=== PATIENT | female | born 1935 | race Caucasian/White ===

== ENCOUNTER → 2019-09-13 15:10 | Outpatient (ROUT) | payer MEDICARE, SELFPAY ==
[2019-09-13 15:35] LABS: Appearance Urine UA CLOUDY; Bilirubin Urine UA NEGATIVE (NEGATIVE); Color Urine UA YELLOW; Glucose Urine UA NEGATIVE (Negative); Ketones Urine UA NEGATIVE (NEGATIVE); Leukocyte Esterase Urine UA 3+ (NEGATIVE); Nitrite Urine UA POSITIVE (Negative); Occult Blood Urine UA 2+ (Negative); Protein Urine UA TRACE (Negative); Urobilinogen Urine UA 0.2 E.U./dL (0.2)
[2019-09-13 15:37] LABS: pH Urine UA 7.5 (4.5-8.0)
[2019-09-13 15:45] LABS: Amorphous Sediment Urine 1+; Bacteria Urine Many (>30); RBC Urine 1-5/HPF (0-5/HPF); Squamous Epithelial Cell Urine 0-1 /HPF (0-5/HPF); WBC Urine >100/HPF (0-5/HPF)
[2019-09-13 15:46] LABS: Mucus Urine 1+ (Negative)
== END ==
PROVIDERS: PCP Physician Assistant; Visit Provider Student in an Organized Health Care Education/Training Program
DX: R35.0 Frequency of micturition (principal); N39.0 Urinary tract infection, site not specified
CPT/HCPCS: 81001; 87077; 87086; 87186

== ENCOUNTER → 2020-03-12 14:51 | Outpatient (CLI) | payer MEDICARE, SELFPAY ==
[2020-03-12 11:05] VITALS: BMI 32.0
--- NOTE | 2020-03-12 12:05 | DIET.PN ---
Dietary Progress Note Assessment: 85y F c DM2 (A1c 6.6) requesting RD help to maintain good BG control and manage weight s/p stroke in 2018 resulting in L sided weakness (pt is L dominant) as pt has reduced mobility uses wheelchair, walker, and cane and is on nectar thickened liquids and mechanical soft diet. Pt had 7 children and had weight gain with each of them. Pt feels her best at 160# so wants to lose 15# to improve mobility and her overall health. Pt desires consult c RD as she cannot perform much physical activity outside of physical therapy and hand exercises secondary to hx of stroke. Pt POs have been almost the same for the past 20y c regular intake of Shakley shakes and vitamins. Shake is 2 scoops PRO powder, 1 banana, 6 strawberries, unsweet almond milk and ice. Pt splits this into 3 servings each providing 90 kcals, 15g CHO and 6g PRO. Usual Day: wakes 6:30 7am breakfast: vitamins c shake and kiwi 11am lunch: 2 peeled and sliced apples c 1oz pepperjack cheese and 32 nut thin crackers, tea or deli meat c cheese and pickles 5pm dinner: salad c veggies and buttermilk ranch dressing, sometimes turkey or ham bedtime snack 1/2 c ice cream in sugar cone Pts diet is overrepresented with carbohydrates in lunchtime meal and likely high in sodium r/t deli meat, pickle, and salad dressing choices. HT: 5'2 WT: 175# BMI: 31.6 Labs: TG 160 H, A1c 6.6 H (2017) Nutrition Diagnosis: obesity r/t food and nutrition related knowledge deficit, overconsumption of carbohydrates aeb pt A1c 6.6, BMI 31.6, pts food recall shows lunch containing >50g CHO which hasn't changed in 20y. Interventions: 1. To promote weight loss, pt will aim for 1400 kcal/d with largest at lunchtime meal, splitting the rest between breakfast and dinner. 2. To promote good BG control and support weight loss, pt will consume 30-40g CHO at meals. Pt will choose apples or crackers for lunch, not both and if feeling hungry will eat 1/2c vegetables. EER: 30-40g CHO per meal and 1400kcal (-100/d to support gentle weight loss)
== END ==
PROVIDERS: PCP Student in an Organized Health Care Education/Training Program; Referring Provider Student in an Organized Health Care Education/Training Program; Visit Provider Physician Assistant
DX: E11.9 Type 2 diabetes mellitus without complications (principal); Z71.3 Dietary counseling and surveillance; I69.352 Hemiplegia and hemiparesis following cerebral infarction affecting left dominant side; E66.9 Obesity, unspecified; Z68.31 Body mass index [BMI] 31.0-31.9, adult
CPT/HCPCS: 97802

== ENCOUNTER → 2020-05-15 09:50 | Outpatient (CLI) | payer MEDICARE, MEDICAID, SELFPAY ==
--- NOTE | 2020-05-15 09:53 | DI.MRI.S_ITS ---
PROCEDURE: MR HEAD/BRAIN WO/W CON INDICATIONS: Weakness TECHNIQUE: Noncontrast axial T1 spin echo, axial T2 fast spin echo, sagittal and axial FLAIR, coronal T2 fast spin echo, axial gradient echo, axial diffusion and ADC through the brain. After the administration of contrast, axial and coronal T1 spin echo with fat saturation through the brain. COMPARISON: [facility], MR, MR STROKE PROTOCOL, 09/17/2018, 13:32. FINDINGS: Image quality: Partially degraded by motion artifact. CSF spaces: Basal cisterns are patent. No extra-axial fluid collections. Ventricles are normal in size and shape. Brain: No midline shift. No intracranial bleeds or masses. No abnormal intracranial enhancement. There is cerebral volume loss for age. Small chronic left cerebellar infarct is present, as before. Small chronic right posterior thompson radiata infarct is present, as before. There is periventricular white matter chronic small vessel ischemic change. The brainstem appears normal. Diffusion-weighted images demonstrate no acute ischemic insults. No chronic ischemic insults. Normal intravascular flow voids are present. Skull and face: Calvarial marrow is normal in signal. Orbits appear normal. Sinuses: Sinuses and mastoids appear clear. IMPRESSION: 1. Volume loss and small vessel ischemic disease. 2. Small chronic cerebral and cerebellar infarcts. 3. No acute process. No recent infarct. Dictated by: Stevo Tripp M.D. on 05/15/2020 at 11:24 Approved by: Stevo Tripp M.D. on 05/15/2020 at 11:26
== END ==
PROVIDERS: PCP Student in an Organized Health Care Education/Training Program; Referring Provider Student in an Organized Health Care Education/Training Program; Visit Provider Student in an Organized Health Care Education/Training Program
DX: I63.9 Cerebral infarction, unspecified (principal); R53.1 Weakness; R51.9 Headache, unspecified
CPT/HCPCS: 70553

== ENCOUNTER → 2020-06-20 19:24 | Outpatient (ROUT) | payer OTHER, SELFPAY | PROVIDERS: PCP Student in an Organized Health Care Education/Training Program; Visit Provider Student in an Organized Health Care Education/Training Program | DX: R39.9 Unspecified symptoms and signs involving the genitourinary system (principal) | CPT/HCPCS: 87077; 87086; 87186 ==

== ENCOUNTER → 2020-07-01 18:26 | Outpatient (ROUT) | payer OTHER, SELFPAY | PROVIDERS: PCP Student in an Organized Health Care Education/Training Program; Visit Provider Internal Medicine | DX: N39.0 Urinary tract infection, site not specified (principal) | CPT/HCPCS: 87077; 87086; 87186 ==

== ENCOUNTER → 2021-05-04 07:59 | Outpatient (CLI) | payer OTHER, SELFPAY ==
--- NOTE | 2021-05-04 09:28 | DI.ECHO.S_ITS ---
Echocardiogram Report + + :Name: ZOHREH BACA Study Date: 05/04/2021 Height: 62 in : :[facility] ReadingLocation: Weight: 178 lb : : Gender: Female BSA: 1.8 m2 : :: 1935 Age: 86 yrs BP: 135/77 mmHg: :Reason For Study: Heart failure : :Ordering Physician: Asuncion : :Nirav Performed By: Blake Dubon : :Referring: Asuncion Gastelum : + + Interpretation Summary Technically difficult study. Mild concentric left ventricular hypertrophy with ejection fraction 60-65%. Mildly dilated right atrium. There is no hemodynamically significant valvular aortic stenosis. Moderate to severe mitral annular calcification. Mild mitral regurgitation. Moderate tricuspid regurgitation. The right ventricular systolic pressure is estimated to be at least 35 mmHg based on an estimated right atrial pressure of 3 mm Hg. Mildly enlarged ascending aorta. Procedure: A two-dimensional transthoracic echocardiogram with color flow and Doppler was performed. The study quality was technically difficult. The apical views were difficult to obtain and are suboptimal in quality. The subcostal views were difficult to obtain and are suboptimal in quality. The patient was in normal sinus rhythm during the exam. Left Ventricle: The left ventricle is normal in size. There is mild concentric left ventricular hypertrophy. The ejection fraction is estimated to be 60-65%. There are no focal wall motion abnormalities. Diastolic function could not be accurately assessed due to confounding valvular disease. Right Ventricle: The right ventricle is normal in size and function. Atria: Borderline left atrial enlargement. The right atrium is mildly dilated. Mitral Valve: There is moderate to severe mitral annular calcification. There is mild mitral regurgitation. Aortic Valve: The aortic valve is trileaflet. The aortic valve is moderately calcified. There is mildly reduced leaflet mobility. There is no hemodynamically significant valvular aortic stenosis. There is trace aortic regurgitation. Tricuspid Valve: The tricuspid valve is normal. There is moderate tricuspid regurgitation. The right ventricular systolic pressure is estimated to be at least 35 mmHg based on an estimated right atrial pressure of 3 mm Hg. Pulmonic Valve: The pulmonic valve leaflets are thin and pliable; valve motion is normal. There is a trace or physiologic amount of pulmonic regurgitation. Great Vessels: The aortic root is normal size. The ascending aorta is mildly enlarged. The aortic arch is normal in size. The IVC is of normal diameter and collapses greater than 50% with a sniff. This suggests a low right atrial pressure of 3 mm Hg. Pericardium/ Pleura There is no pericardial effusion. There is an anterior echo-free space consistent with a fat pad. There is no pleural effusion. MMode/2D Measurements & Calculations LVIDd: 4.0 cm LVOT diam: 1.8 cm LVIDs: 2.5 cm Ao root diam: 2.8 cm FS: 36.7 % asc Aorta Diam: 3.8 cm IVSd: 1.1 cm Ao Arch Diam (Prox Trans): 2.9 cm LVPWd: 1.5 cm LV arnold. diameter/BSA (cm/m^2): 2.2 LV sys. diameter/BSA (cm/m^2): 1.4 LA A2 area: 17.0 cm2 RA long axis: 5.6 cm LA A4 area: 26.4 cm2 RA area: 16.6 cm2 LA length (vol): 6.7 cm RA vol: 41.6 ml LA vol: 56.8 ml RA : 22.9 ml/m2 LA vol index: 31.3 ml/m2 TAPSE_phl: 2.0 cm Doppler Measurements & Calculations Ao V2 max: 171.6 cm/sec LVOT Max Sanjay: 81.0 cm/sec Ao V2 mean: 130.9 cm/sec LV V1 max P.6 mmHg Ao max P.8 mmHg LV V1 VTI: 19.0 cm Ao mean P.2 mmHg ROGER(I,D): 1.2 cm2 Ao V2 VTI: 41.9 cm ROGER(V,D): 1.2 cm2 sev ratio: 0.45 ROGER indexed to BSA (cm^2/m^2): 0.64 MV E max sanjay: 107.0 cm/sec TR max sanjay: 282.3 cm/sec MV A max sanjay: 108.0 cm/sec TR max P.9 mmHg MV E/A: 0.99 PA V2 max: 79.6 cm/sec Med Peak E' Sanjay: 3.9 cm/sec PA V2 mean: 54.3 cm/sec E/E' med: 27.6 PA mean P.0 mmHg Lat Peak E' Sanjay: 5.2 cm/sec PA pr(Accel): 40.8 mmHg E/E' lat: 20.5 E/e' average: 24.1 MV dec time: 0.18 sec MVA(VTI): 1.1 cm2 MV V2 mean: 76.1 cm/sec SV(LVOT): 48.3 ml MV mean P.0 mmHg MV V2 VTI: 42.7 cm MV P1/2t-pr_phl: 53.0 msec Electronically signed by: Valentino Strickland on Reading Physician:05/04/2021 12:25 PM
== END ==
PROVIDERS: PCP Student in an Organized Health Care Education/Training Program; Referring Provider Internal Medicine; Visit Provider Internal Medicine
DX: I08.1 Rheumatic disorders of both mitral and tricuspid valves (principal); I77.89 Other specified disorders of arteries and arterioles; I50.9 Heart failure, unspecified
CPT/HCPCS: 93306

== ENCOUNTER → 2022-07-22 09:31 | Outpatient (CLI) | payer OTHER, MEDICAID, SELFPAY | PROVIDERS: PCP Student in an Organized Health Care Education/Training Program; Visit Provider Specialist | DX: N39.0 Urinary tract infection, site not specified (principal); N95.2 Postmenopausal atrophic vaginitis; R39.9 Unspecified symptoms and signs involving the genitourinary system | CPT/HCPCS: 51798; 81002; 87077; 87086; 87186; 99215 ==

== ENCOUNTER → 2022-09-22 07:48 | Outpatient (CLI) | payer OTHER, MEDICAID, SELFPAY | PROVIDERS: PCP Student in an Organized Health Care Education/Training Program; Visit Provider Specialist | DX: N39.0 Urinary tract infection, site not specified (principal); N39.46 Mixed incontinence; R39.9 Unspecified symptoms and signs involving the genitourinary system | CPT/HCPCS: 51701; 87077; 87086; 87186 ==